=== PATIENT | male | born 1990 ===

== ENCOUNTER 2019-07-11 01:40 | Emergency (ER) | payer SELFPAY ==
[2019-07-11] MEDS ORDERED: SODIUM CHLORIDE 0.9% 1000 ML 1,000 ML IV ONE (02:09)
[2019-07-11] MEDS ORDERED: KETOROLAC 30 MG/1 ML INJ ONE ×2 (02:11→05:31)
[2019-07-11] MEDS ORDERED: ONDANSETRON 4 MG/2 ML INJ ONE ×2 (02:11→05:30)
[2019-07-11] MEDS ORDERED: KETOROLAC 30 MG/1 ML INJ IV ONE ×2 (02:25→05:33)
[2019-07-11] MEDS ORDERED: ONDANSETRON 4 MG/2 ML INJ IV ONE ×2 (02:25→05:28)
[2019-07-11 02:29] LABS: Basophils # (Auto) 0.1 K/mm3 (0.0-0.1); Basophils % (Auto) 0.8 % (0.0-1.8); Eosinophils # (Auto) 0.2 K/mm3 (0.0-0.4); Eosinophils % (Auto) 2.1 % (0.0-4.3); Hematocrit 47.2 % (35.5-45.6); Hemoglobin 16.4 gm/dl (11.8-15.2); Lymphocytes # (Auto) 2.7 K/mm3 (1.2-5.4); Lymphocytes % (Auto) 24.7 % (13.4-35.0); Mean Corpuscular HGB Conc 35 % (32-34); Mean Corpuscular Volume 92 fl (84-94); Monocytes # (Auto) 1.1 K/mm3 (0.0-0.8); Monocytes % (Auto) 9.9 % (0.0-7.3); Platelet Count 354 K/mm3 (140-440); Red Blood Count 5.15 M/mm3 (3.65-5.03); Red Cell Distribution Width 12.9 % (13.2-15.2)
[2019-07-11 02:52] LABS: Alanine Aminotransferase 43 units/L (7-56); BUN/Creatinine Ratio 19; Blood Urea Nitrogen 17 mg/dL (9-20); Calcium 9.6 mg/dL (8.4-10.2); Hemolysis Index 12
--- NOTE | 2019-07-11 03:35 | Cat Scan Report ---
CT ABDOMEN AND PELVIS WITHOUT CONTRAST HISTORY: RENAL STONE PROTOCOL! Left sided flank pain.. COMPARISON: None. TECHNIQUE: CT images of the abdomen and pelvis were obtained without administration of intravenous co ntrast. All CT scans at this location are performed using CT dose reduction for ALARA by means of au tomated exposure control. FINDINGS: Lungs/bones: Lung bases are clear. No acute osseous abnormality. The L5 vertebral body is transition al on the left Abdomen/pelvis: There is a 3 mm stone in the distal left ureter with mild left-sided hydronephrosis and perinephric stranding. Additional nonobstructive nephrolithiasis is present in the left kidney wi th a 4 mm stone in the midpole. Right kidney is unremarkable. There is hepatic steatosis and hepatomegaly. The spleen, pancreas, adrenals, and proximal GI tract ap pear unremarkable. The urinary bladder and prostate are unremarkable with no pelvic free fluid and no acute colonic abno rmality. The appendix is normal. IMPRESSION: 1. 3 mm stone in the distal left ureter causing mild hydronephrosis. Signer Name: Berry Mckeon MD Signed: 07/11/2019 3:31 AM Workstation Name: [id number]
[2019-07-11] MEDS ORDERED: cefTRIAXone/NS 1 GM/50 ML 1 GM/50 ML BAG IV ONE (05:07)
[2019-07-11] MEDS ORDERED: MORPHINE 4 MG/1 ML INJ IV ONE (05:28)
[2019-07-11] MEDS ORDERED: MORPHINE 4 MG/1 ML INJ ONE (05:31)
--- NOTE | 2019-07-11 06:03 | Emergency Department Report ---
ED Abdominal Pain HPI - General Chief Complaint: Abdominal Pain Stated Complaint: ABDOMINAL PAIN,VOMITING Time Seen by Provider: 07/11/19 05:06 Source: patient, family Mode of arrival: Ambulatory Limitations: Language Barrier - History of Present Illness Initial Comments: Mr. Dillon is a 29-year-old male with a history of renal stones who presents for left flank pain radiating to left lower quadrant 2 days with intermittent nausea. patient states some fever at home no fever noted in triage today. Patient states some dysuria, no hematuria. Symptoms are exacerbated by activity and movement. Symptoms are relieved by nothing tried. MD Complaint: flank pain Onset/Timin -: days(s) Location: L flank Radiation: LLQ Severity scale (0 -10): 6 Quality: aching, sharp Consistency: constant Improves With: nothing Worsens With: other ( voiding ) Associated Symptoms: nausea, vomiting, dysuria. denies: diarrhea, fever, constipation, melena, hematuria - Related Data Previous Rx's Medication Instructions Recorded Last Taken Type Ciprofloxacin HCl [Ciprofloxacin 500 mg PO BID 10 Days #20 tab 07/11/19 Unknown Rx TAB] Ketorolac [Toradol] 10 mg PO Q6H PRN #12 tablet 07/11/19 Unknown Rx Tamsulosin [Flomax] 0.4 mg PO QDAY #14 cap 07/11/19 Unknown Rx Allergies Allergy/AdvReac Type Severity Reaction Status Date / Time No Known Allergies Allergy Verified 07/11/19 02:17 ED Review of Systems ROS: Stated complaint: ABDOMINAL PAIN,VOMITING Other details as noted in HPI Constitutional: denies: chills, fever Eyes: denies: eye pain, eye discharge, vision change ENT: denies: ear pain, throat pain Respiratory: denies: cough, shortness of breath, wheezing Cardiovascular: denies: chest pain, palpitations Endocrine: no symptoms reported Gastrointestinal: abdominal pain, nausea, vomiting. denies: diarrhea, constipation, melena Genitourinary: urgency, dysuria, frequency. denies: hematuria, discharge, testicular pain, testicular mass Musculoskeletal: back pain (left flank ) Skin: denies: rash, lesions Neurological: denies: headache, weakness, paresthesias Psychiatric: denies: anxiety, depression Hematological/Lymphatic: denies: easy bleeding, easy bruising ED Past Medical Hx - Past Medical History Hx HIV: No - Surgical History Past Surgical History?: No - Social History Smoking Status: Light Tobacco Smoker Substance Use Type: Alcohol - Medications Home Medications: Home Medications Medication Instructions Recorded Confirmed Last Taken Type Ciprofloxacin HCl [Ciprofloxacin 500 mg PO BID 10 Days #20 tab 07/11/19 Unknown Rx TAB] Ketorolac [Toradol] 10 mg PO Q6H PRN #12 tablet 07/11/19 Unknown Rx Tamsulosin [Flomax] 0.4 mg PO QDAY #14 cap 07/11/19 Unknown Rx ED Physical Exam - General Limitations: Language Barrier General appearance: alert, in no apparent distress - Head Head exam: Present: atraumatic, normocephalic, normal inspection - Eye Eye exam: Present: normal appearance, PERRL, EOMI Pupils: Present: normal accommodation - ENT ENT exam: Present: mucous membranes moist - Neck Neck exam: Present: normal inspection, full ROM. Absent: lymphadenopathy - Respiratory Respiratory exam: Present: normal lung sounds bilaterally. Absent: respiratory distress, wheezes, stridor, chest wall tenderness - Cardiovascular Cardiovascular Exam: Present: regular rate, normal rhythm, normal heart sounds. Absent: systolic murmur, diastolic murmur, rubs, gallop - GI/Abdominal GI/Abdominal exam: Present: soft, tenderness (left flank), normal bowel sounds. Absent: distended, guarding, rebound, rigid, bruit, hernia - Rectal Rectal exam: Present: deferred - Extremities Exam Extremities exam: Present: normal inspection, full ROM. Absent: tenderness - Back Exam Back exam: Present: full ROM, CVA tenderness (L). Absent: CVA tenderness (R) - Neurological Exam Neurological exam: Present: alert, oriented X3, CN II-XII intact, normal gait - Psychiatric Psychiatric exam: Present: normal affect, normal mood - Skin Skin exam: Present: warm, dry, intact, normal color. Absent: rash ED Course Vital Signs 07/11/19 01:47 Temperature 98.3 F Pulse Rate 96 H Respiratory 18 Rate Blood Pressure 180/102 O2 Sat by Pulse 99 Oximetry ED Medical Decision Making - Lab Data Result diagrams: 07/11/19 02:20 07/11/19 02:20 Labs 07/11/19 07/11/19 07/11/19 02:20 02:20 02:20 WBC 11.1 H RBC 5.15 H Hgb 16.4 H Hct 47.2 H MCV 92 MCH 32 MCHC 35 H RDW 12.9 L Plt Count 354 Lymph % (Auto) 24.7 Terrell % (Auto) 9.9 H Eos % (Auto) 2.1 Baso % (Auto) 0.8 Lymph # 2.7 Terrell # 1.1 H Eos # 0.2 Baso # 0.1 Seg Neutrophils % 62.5 Seg Neutrophils # 6.9 Sodium 138 Potassium 4.1 Chloride 100.1 Carbon Dioxide 23 Anion Gap 19 BUN 17 Creatinine 0.9 Estimated GFR > 60 BUN/Creatinine Ratio 19 Glucose 131 H Calcium 9.6 Total Bilirubin 0.40 AST 26 ALT 43 Alkaline Phosphatase 86 Total Protein 7.8 Albumin 5.0 Albumin/Globulin Ratio 1.8 Lipase 24 - Radiology Data Radiology results: report reviewed, image reviewed Findings [facility] [address] [place] [address] Cat Scan Report Signed Patient: ОЛЬГА SHEA R#: [id number] : 1990 Acct:[id number] Age/Sex: 29 / M ADM Date: 07/11/19 Loc: ED Attending Dr: Ordering Physician: RORY BERGER Date of Service: 07/11/19 Procedure(s): CT abdomen pelvis wo con Accession Number(s): [id number] cc: RORY BERGER CT ABDOMEN AND PELVIS WITHOUT CONTRAST HISTORY: RENAL STONE PROTOCOL! Left sided flank pain.. COMPARISON: None. TECHNIQUE: CT images of the abdomen and pelvis were obtained without administration of intravenous contrast. All CT scans at this location are performed using CT dose reduction for ALARA by means of automated exposure control. FINDINGS: Lungs/bones: Lung bases are clear. No acute osseous abnormality. The L5 vertebral body is transitional on the left Abdomen/pelvis: There is a 3 mm stone in the distal left ureter with mild left- sided hydronephrosis and perinephric stranding. Additional nonobstructive ne phrolithiasis is present in the left kidney with a 4 mm stone in the midpole. Right kidney is unremarkable. There is hepatic steatosis and hepatomegaly. The spleen, pancreas, adrenals, and proximal GI tract appear unremarkable. The urinary bladder and prostate are unremarkable with no pelvic free fluid and no acute colonic abnormality. The appendix is normal. IMPRESSION: 1. 3 mm stone in the distal left ureter causing mild hydronephrosis. Signer Name: Berry Mckeon MD Signed: 07/11/2019 3:31 AM Workstation Name: [id number] Transcribed By: CARLOS Dictated By: Berry Mckeon MD Electronically Authenticated By: Berry Mckeon MD Signed Date/Time: 07/11/19 0331 DD/ 0329 TD/TT: - Medical Decision Making CT: Renal stones, left distal urethral stone 1.3, nonobstructive, mild hydronephrosis, plan: dc to home with rx for toradol, flomax, cipro, follow up wtih urology in 2-3 days, pt given referral to same, pain is currently improved, pt will be dc 'd to home in stable condition. Critical care attestation.: If time is entered above; I have spent that time in minutes in the direct care of this critically ill patient, excluding procedure time. ED Disposition Clinical Impression: Renal stones Disposition: DC-01 TO HOME OR SELFCARE Is pt being admited?: No Does the pt Need Aspirin: No Condition: Stable Instructions: Kidney Stones (ED) Prescriptions: Ciprofloxacin HCl [Ciprofloxacin TAB] 500 mg PO BID 10 Days #20 tab Tamsulosin [Flomax] 0.4 mg PO QDAY #14 cap Ketorolac [Toradol] 10 mg PO Q6H PRN #12 tablet PRN Reason: Pain Referrals: CARRINGTON REYES MD [Staff Physician] - 3-5 Days Forms: Work/School Release Form(ED) Time of Disposition: 06:09 Print Language: PORTUGUESE
[2019-07-11 06:30] VITALS: BP 144/90
== END 2019-07-11 06:30 | disposition home or self-care (01) ==
LOC: ED 01:40
DX: N20.0 Calculus of kidney (principal); F17.200 Nicotine dependence, unspecified, uncomplicated; Z79.899 Other long term (current) drug therapy
CPT/HCPCS: 36415; 74176; 80053; 83690; 85025; 96365; 96375; 96376; 99284; J0696; J1885; J2270; J2405; J7030